=== PATIENT | male | born 1945 ===

== ENCOUNTER 2023-07-31 05:16 | Day surgery (SDC) | payer OTHER ==
[2023-07-27 10:53] LABS: HEMATOCRIT 43.4 % (39.0-48.0); HEMOGLOBIN 14.8 g/dL (13-16.00); MEAN CELL VOLUME 100.7 fL (80.0-100.00); MEAN CORPUSCULAR HEMOGLOBIN 34.3 pg (27.00-32.0); PLATELET COUNT 234 K/uL (150-450); RED BLOOD COUNT 4.31 M/uL (4.00-6.00); RED CELL DISTRIBUTION WIDTH 13.5 % (11.5-14.5)
[2023-07-27 11:19] LABS: PH,URINE 5.5 (5.0-8.0); URINE APPEARANCE Clear; URINE BILIRRUBIN Negative (NEGATIVE); URINE BLOOD Small; URINE COLOR Yellow; URINE GLUCOSE Negative (NEGATIVE); URINE LEUKOCYTE Small; URINE NITRATE Positive; URINE PROTEIN Negative (NEGATIVE); URINE UROBILINOGEN 0.2 E.U./dl
[2023-07-27 11:23] LABS: URINE EPITHELIAL CELLS 6.4 uL (0.0-38.8); URINE RBC 14.6 uL (0.0-20.8); URINE WBC 216.7 uL (0.0-23.2)
[2023-07-27 11:31] LABS: ALBUMIN 3.6 gm/dL (3.4-5.0); BILIRUBIN TOTAL 0.52 mg/dL (0.3-1.2); CALCIUM 9.4 mg/dL (8.5-10.1); CREATININE SERUM 1.05 mg/dL (0.70-1.30); GFR 68.86; GLOBULINA 3.8 G/DL (2.4-3.5); POTASSIUM 4.19 mEq/L (3.5-5.1); TOTAL PROTEIN 7.4 gm/dL (6.4-8.2)
[2023-07-27 11:36] LABS: URINE BACTERIA > 9821.5 uL (0.0-1933)
[2023-07-27 11:44] LABS: INR 0.98; PARTIAL THROMBOPLASTIN TIME 29.9 SECONDS (22.0-34.0); PROTHROMBIN TIME 10.3 SECONDS (9.0-11.5)
[~2023-07-31] VITALS: Ht 177.8 cm; Wt 87.1 kg
[~2023-07-31 05:16] MED LIST: AVAPRO300 MG PO; DULOXETINE HCL30 MG PO; METFORMIN HCL500 M3 PO; PLAVIX75 MG PO; SIMVASTATIN10 MG PO; ZETIA10 MG PO
[2023-07-31] MEDS ORDERED: BUPIVACAINE HCL/PF 0.5% 30ML ML ONE (08:11)
[2023-07-31] MEDS ORDERED: CEFAZOLIN SODIUM 1,000 MG VIAL ONE (08:11)
[2023-07-31] MEDS ORDERED: ISOPROPYL ALCOHOL 30 ML OUNCE TOP ONE (09:15)
[2023-07-31] MEDS ORDERED: BUPIVACAINE HCL/PF 0.5% 30ML ML IJ ONE (09:15)
[2023-07-31] MEDS ORDERED: CEFAZOLIN SODIUM 1,000 MG VIAL IV ONE (09:15)
== END 2023-07-31 13:00 | disposition home or self-care (01) ==
LOC: CIR.AMB 05:16
PROVIDERS: ATTEND Orthopaedic Surgery Hand Surgery
DX: S52.531A Colles' fracture of right radius, initial encounter for closed fracture (principal); E11.9 Type 2 diabetes mellitus without complications; E78.00 Pure hypercholesterolemia, unspecified; I10 Essential (primary) hypertension
CPT/HCPCS: 25609; 25280; L8699